=== PATIENT | male | born 1970 | race Caucasian/White ===

== ENCOUNTER → 2017-10-05 | Outpatient (CLI) | payer BC ==
--- NOTE | 2017-10-05 12:10 | RAD ---
KUB, 10/05/2017: HISTORY: Left-sided pain, renal calculus The abdominal gas pattern is unremarkable. There is moderate amount stool scattered throughout the colon. There is no evidence organomegaly. Lower pelvic calcifications are probably phleboliths. There are mild scattered degenerative changes in the spine. IMPRESSION: 1. No acute abdominal abnormality is detected. 2. If there is a high clinical suspicion of and obstructing calculus on the left, CT scanning is suggested for further evaluation. Electronically signed by: Ebenezer Grissom MD (10/05/2017 12:06 PM) [facility]
== END | disposition home or self-care (01) ==
LOC: RAD 09:57
PROVIDERS: ATTEND Urology
DX: N20.0 Calculus of kidney (principal)
CPT/HCPCS: 74018